=== PATIENT | male | born 1965 | race Caucasian/White ===

== ENCOUNTER 2020-02-06 08:06 | Emergency (ER) | payer OTHER, SELFPAY ==
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
[2020-02-06 08:30] VITALS: BP 146/81; PULSE 77; RESP 16; TEMP 36.1; O2SAT 98
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
[2020-02-06] MEDS: KETOROLAC (*BKC) 60 MG/2 ML VIAL IM (08:57)
== END 2020-02-06 10:00 | disposition home or self-care (01) ==
PROVIDERS: Emergency Provider Nurse Practitioner Family
DX: S72.431A Displaced fracture of medial condyle of right femur, initial encounter for closed fracture (principal); R93.6 Abnormal findings on diagnostic imaging of limbs; F17.210 Nicotine dependence, cigarettes, uncomplicated; R03.0 Elevated blood-pressure reading, without diagnosis of hypertension; V10.4XXA Pedal cycle driver injured in collision with pedestrian or animal in traffic accident, initial encounter; Y93.55 Activity, bike riding
CPT/HCPCS: 29515; 73564; 73610; 99214; G0463; J1885; L1830

== ENCOUNTER 2020-05-11 16:26 | Emergency (ER) | payer OTHER, SELFPAY ==
--- NOTE | ~2020-05-11 | XR_ITS ---
EXAMINATION: XR chest 2V DATE: 05/11/2020 21:12 INDICATION: Shortness of breath and cough. Wheezing. TECHNIQUE: Frontal and lateral views of the chest were obtained on 4 radiographs. COMPARISON: Chest single view 09/10/2007 FINDINGS: Calcified pulmonary nodules and calcified mediastinal lymph nodes are consistent with old g ranulomatous disease. No pleural effusion or pneumothorax. The heart size is normal. IMPRESSION: 1. No acute cardiopulmonary disease. Reviewed, dictated and finalized at location A.
[2020-05-11 16:29] VITALS: BP 147/98; PULSE 72; RESP 20; TEMP 36.1; O2SAT 100
[2020-05-11 16:43] LABS: Basophils Absolute Auto 0.1 K/mm3 (0.0-0.1); Basophils Percent Auto 0.9 % (0.2-1.2); Eosinophils Absolute Auto 0.1 K/mm3 (0-0.3); Eosinophils Percent Auto 1.8 % (0-4.4); Hematocrit 39.7 % (42.0-52.0); Hemoglobin 13.3 g/dL (14.0-18.0); Immature Granulocyte Absolute 0.01 K/mm3 (0.00-0.031); Immature Granulocyte Percent A 0.2 % (0-0.5); Lymphocytes Absolute Auto 1.48 K/mm3 (0.9-3.2); Lymphocytes Percent Auto 27.1 % (18.3-44.2); Mean Corpuscular HGB Conc 33.5 g/dl (32-36); Mean Corpuscular Hemoglobin 31.5 pg (26-34); Mean Corpuscular Volume 94.1 fl (80-100); Mean Platelet Volume 9.4 fl (7.4-10.4); Monocytes Absolute Auto 0.6 K/mm3 (0.1-0.6); Monocytes Percent Auto 11.7 % (2.6-8.5); Neutrophils Absolute Auto 3.2 K/mm3 (1.3-6.7); Neutrophils Percent Auto 58.3 % (45.5-73.1); Platelet Count Result 264 k/mm3 (150-375); Red Blood Count 4.22 M/mm3 (4.6-6.20); Red Cell Distribution Width 12.4 % (11.5-14.5); White Blood Count 5.5 K/mm3 (4.5-10.0)
[2020-05-11 16:56] LABS: Alanine Aminotransferase 17 U/L (4-50); Alkaline Phosphatase 70 U/L (38-126); Anion Gap 4 mmol/L (8-16); Aspartate Amino Transferase 24 U/L (17-59); Bilirubin,Total 0.3 mg/dL (0.2-1.3); Blood Urea Nitrogen 13 mg/dL (9-20); Calcium 8.9 mg/dL (8.4-10.2); Carbon Dioxide 27 mmol/L (22-30); Chloride 103 mmol/L (98-107); Estimated CRCL calculation 64 ml/min; Estimated Glomerular Filt Rate > 60; Glucose 103 mg/dL (75-110); Potassium 4.3 mmol/L (3.4-5.0); Sodium 134 mmol/L (137-145)
[2020-05-11 19:21] VITALS: BP 154/99; PULSE 90; RESP 18; O2SAT 100
--- NOTE | 2020-05-11 20:02 | ED.WEAKNESS ---
HPI - Weakness General Chief complaint: Weakness Stated complaint: weakness, fatigue Time Seen by Provider: 05/11/20 20:02 History of Present Illness HPI Narrative: [place] courthouse in police custody for fatigue. He reports feeling weak and fatigued for a while worse today. Occasional light headedness. No fever, cough, congestion, nausea, diarrhea, or other systemic symptom. Related Data Home Medications Medication Instructions Recorded Confirmed No Home Medications 02/06/20 02/12/20 Allergies Allergy/AdvReac Type Severity Reaction Status Date / Time No Known Allergies Allergy Verified 02/06/20 08:30 Review of Systems Review of Systems: All systems reviewed & are unremarkable except as noted in HPI and below Constitutional: Constitutional: Denies chills, Reports fatigue, Denies fever(s) and Reports weakness Cardiovascular: Cardiovascular: Denies chest pain Respiratory: Respiratory: Denies cough, Denies dyspnea and Denies wheezing Gastrointestinal: Gastrointestinal: Denies abdominal pain, Denies diarrhea, Denies nausea and Denies vomiting Genitourinary: Genitourinary: Denies dysuria Musculoskeletal: Musculoskeletal: Denies back pain Neurologic: Reports dizziness and Reports weakness [facility] Past Medical History Medical History No significant past medical history Surgical History Surgical History No significant past surgical history Family History Family History Other No significant family history Social History Social History Smoking packs per day: 0.5 Smoking cigarettes per day: 10.0 Years smoked: 20 Smoking pack-years: 10.00 Smoking status: Current every day smoker Tobacco type: cigarettes Second hand tobacco smoke exposure: Yes Alcohol intake: never Substance use: current Substance use type: marijuana Gender identity (if verbalized by the patient): Male Exam Const: General: healthy appearing, no acute distress and alert Orientation/consciousness: patient oriented x3 HENMT: Head: normal to inspection Neck: Neck: normal visual inspection and no lymphadenopathy Chest: Chest palpation & inspection: no tenderness Resp: Effort & Inspection: normal respiratory effort Auscultation: no rales, no rhonchi and wheezes right upper and anterior Cardio: Jugular venous distension: no JVD Rate: regular rate Rhythm: regular rhythm Heart sounds: no murmurs GI: Inspection: non-distended GI Palp: Yes Soft to palpation and No Tenderness to palpation present (GI) Skin: General skin exam: normal color Neuro: General: patient oriented x3, moves all extremities, no focal motor deficits and CN's II-XI intact bilaterally Speech: normal speech Extrem: General: no edema Psych: Appearance: well kempt Affect: normal affect Course Vital Signs Vital signs: Vital Signs Temperature 36.1 C L 05/11/20 16:29 Pulse Rate 72 05/11/20 16:29 Respiratory Rate 20 05/11/20 16:29 Blood Pressure 147/98 H 05/11/20 16:29 Pulse Oximetry 100 05/11/20 16:29 Temperature 36.1 C L 05/11/20 16:29 Pulse Rate 72 05/11/20 22:00 Respiratory Rate 18 05/11/20 22:00 Blood Pressure 153/101 H 05/11/20 22:00 Pulse Oximetry 99 05/11/20 22:00 MDM - Weakness MDM Narrative Medical decision making narrative: Labs and chest x-ray unremarkable. Will discharge into police custody Differential Diagnosis Differential diagnosis: Likely anemia, dehydration and other (pneumonia, COPD) Medical Records Attestation: I reviewed the patient's medical records. Lab Data Attestation: I reviewed the patient's lab results. Result diagrams: 05/11/20 16:34 05/11/20 16:34 Labs: Lab Results 05/11/20 05/11/20 Range/Units 16:3
--- NOTE | 2020-05-11 20:20 | PC.NURSE ---
Per police officers-patient has been asleep all while in waiting room. Patient woken from sleep to answer questions-appears in NAD
[2020-05-11] MEDS: SODIUM CHLORIDE 0.9% IV 1,000 ML 999 ML IV CONT (21:13)
[2020-05-11 21:17] VITALS: BP 159/101; PULSE 65; RESP 18; O2SAT 100
[2020-05-11 22:00] VITALS: BP 153/101; PULSE 72; RESP 18; O2SAT 99
== END 2020-05-11 22:00 ==
PROVIDERS: Emergency Medicine; Emergency Provider Emergency Medicine; Referring Provider Family Medicine
DX: R53.83 Other fatigue (principal); R53.81 Other malaise; F17.210 Nicotine dependence, cigarettes, uncomplicated
CPT/HCPCS: 36415; 71046; 80053; 85025; 96360; 99283; J7030

== ENCOUNTER 2021-07-13 14:07 | Emergency (ER) | payer OTHER, SELFPAY ==
[2021-07-13 14:14] VITALS: BP 157/95; PULSE 84; RESP 16; TEMP 36.6; O2SAT 99
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
== END 2021-07-13 16:25 | disposition home or self-care (01) ==
PROVIDERS: Emergency Provider Nurse Practitioner
DX: L02.512 Cutaneous abscess of left hand (principal); F17.210 Nicotine dependence, cigarettes, uncomplicated
CPT/HCPCS: 26010; 99213; G0463

== ENCOUNTER 2021-09-11 11:30 | Emergency (ER) | payer OTHER, SELFPAY ==
--- NOTE | 2021-09-11 11:32 | ED.URI ---
HPI - URI/Sore Throat General Chief Complaint: Upper Respiratory Infection Stated Complaint: fever/body aches Time Seen by Provider: 09/11/21 12:08 Source: patient and RN notes reviewed Mode of arrival: ambulatory Limitations: no limitations History of Present Illness HPI Narrative: 55-year-old male who presents on day 4 of fever, body aches, chills, sweats, headache, runny nose and nausea. Reports he has been taking Tylenol. Reports his appetite is slowly returning today. He denies any known sick contacts. He is not vaccinated for COVID. MD elicited complaint: other (Fever, body aches) Related Data Allergies Allergy/AdvReac Type Severity Reaction Status Date / Time No Known Allergies Allergy Verified 09/11/21 11:54 Review of Systems Review of Systems: CONSTITUTIONAL: Reports malaise, chills, sweats, or fever. EYES: Denies visual changes, redness, or discharge. ENT: Reports rhinorrhea. Denies congestion, sinus pain, otalgia and sore throat. CARDIOVASCULAR: Denies chest pain, palpitations, or edema. RESPIRATORY: Denies cough. Denies dyspnea. GASTROINTESTINAL: Denies abdominal pain, vomiting, diarrhea. Reports nausea SKIN: Denies rash or itching. MUSCULOSKELETAL: Reports myalgia. NEUROLOGIC: Reports headache. All systems reviewed & are unremarkable except as noted in HPI and below PMFSH Past Medical History Medical History (Updated 09/11/21 @ 12:11 by Kimberly Ricci NP) No significant past medical history Surgical History Surgical History No significant past surgical history Family History Family History Other No significant family history Social History Social History Smoking packs per day: 0.5 Smoking cigarettes per day: 10.0 Years smoked: 20 Smoking pack-years: 10.00 Smoking status: Current every day smoker Tobacco type: cigarettes Second hand tobacco smoke exposure: Yes Alcohol intake: never Substance use: current Substance use type: marijuana Gender identity (if verbalized by the patient): Male Comments At time of signature, agree with nursing past medical, surgical, social and family history. There is no relevant family history pertinent to the presenting complaint Exam Narrative: GENERAL: 27-appearing, well-nourished, and in no acute distress. HEAD: Normocephalic EYES: PERRLA, conjunctivae clear ENT: Nares clear. Mucous membranes moist. NECK: Supple. No lymphadenopathy CHEST: Clear to auscultation, breath sounds equal. No wheezing, rhonchi, rales, or stridor. No respiratory distress, speaks in full sentences. HEART: Regular rate and rhythm. No murmur heard. SKIN: Warm, dry, no rash. NEURO: Alert and oriented x3. PSYCH: Normal mood and affect Course Course Emergency Course: Patient is aware of diagnosis, understands and agrees to treatment plan. Anticipatory guidance given. Patient agrees to follow-up as directed and is aware of reasons to seek care at the emergency department. Portions of this record may have been created with voice recognition software Level of Care: Express Care Visit Vital Signs Vital signs: Vital Signs Temperature 97.6 F 09/11/21 11:38 Pulse Rate 72 09/11/21 11:38 Respiratory Rate 16 09/11/21 11:38 Blood Pressure 156/105 H 09/11/21 11:38 Pulse Oximetry 100 09/11/21 11:38 Temperature 97.6 F 09/11/21 11:38 Pulse Rate 72 09/11/21 11:38 Respiratory Rate 16 09/11/21 11:38 Blood Pressure 156/105 H 09/11/21 11:38 Pulse Oximetry 100 09/11/21 11:38 Reviewed. Pt has been instructed to follow up with his primary care provider within the next week regarding his elevated blood pressure today. MDM - URI/Sore Throat MDM Narrative Medical decision making narrative: Differential diagnosis considered: [place] virus, strep pharyngitis, allergic rh
[2021-09-11 11:38] VITALS: BP 156/105; PULSE 72; RESP 16; TEMP 36.4; O2SAT 100
[2021-09-11] MEDS: IBUPROFEN 400 MG TABLET 800 MG PO (12:26)
[2021-09-11] MEDS: ONDANSETRON HCL ODT 4 MG TABLET PO (12:27)
== END 2021-09-11 12:30 | disposition home or self-care (01) ==
PROVIDERS: Emergency Provider Nurse Practitioner
DX: U07.1 COVID-19 (principal); F17.210 Nicotine dependence, cigarettes, uncomplicated
CPT/HCPCS: 87426; 99213; A9270; C9803; G0463

== ENCOUNTER 2024-02-23 15:52 | Emergency (ER) | payer OTHER, MEDICAID, SELFPAY ==
--- NOTE | ~2024-02-23 | XR_ITS ---
XR tibia fibula LT 2V Ordering provider: Umu Medrano NP History: . red swollen wound lt lateral low leg s/p inj 1 week ago . Comparison: None. FINDINGS: BONES: No acute fracture or dislocation. JOINT SPACES: Left knee osteoarthritic changes. SOFT TISSUES: Normal. IMPRESSION: No acute osseous abnormality left leg. Reviewed, dictated and finalized at location A.
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
[2024-02-23 16:12] VITALS: BP 159/84; PULSE 87; RESP 16; TEMP 37.1; O2SAT 97
== END 2024-02-23 16:55 | disposition home or self-care (01) ==
PROVIDERS: Emergency Provider Nurse Practitioner Family
DX: R03.0 Elevated blood-pressure reading, without diagnosis of hypertension (principal); L03.116 Cellulitis of left lower limb; S80.812A Abrasion, left lower leg, initial encounter; V27.49XA Other motorcycle driver injured in collision with fixed or stationary object in traffic accident, initial encounter; F17.210 Nicotine dependence, cigarettes, uncomplicated; F12.90 Cannabis use, unspecified, uncomplicated
CPT/HCPCS: 73590; 99213; G0463